=== PATIENT | male | born 1990 | race Caucasian/White ===

== ENCOUNTER 2018-02-26 21:44 | Emergency (ER) | payer OTHER ==
[~2018-02-26] VITALS: Ht 165.1 cm; Wt 83.9 kg
[2018-02-27] MEDS ORDERED: MIRALAX510 GM PO (02:59)
== END 2018-02-27 02:57 | disposition home or self-care (01) ==
LOC: ER 21:44
DX: K59.09 Other constipation (principal)

== ENCOUNTER 2019-11-26 14:44 | Emergency (ER) | payer OTHER ==
[~2019-11-26] VITALS: Ht 165.1 cm; Wt 85.3 kg
[~2019-11-26 14:44] MED LIST: MIRALAX510 GM PO
[2019-11-26] MEDS ORDERED: CLONAZEPAM0.5 MG (15:21)
== END 2019-11-26 19:03 | disposition home or self-care (01) ==
LOC: ER 14:44
DX: R51 Headache (principal); R10.2 Pelvic and perineal pain